=== PATIENT | female | born 1990 | race Caucasian/White ===

== ENCOUNTER → 2018-02-17 | Outpatient (CLI) | payer OTHER | LOC: COL.RAD 07:18 | DX: R10.11 Right upper quadrant pain (principal) ==

== ENCOUNTER 2018-06-07 21:32 | Emergency (ER) | payer OTHER ==
[~2018-06-07] VITALS: Ht 177.8 cm; Wt 65.9 kg
[2018-06-07 21:36] VITALS: BP 124/75; TEMP 98.6
[2018-06-07] MEDS ORDERED: ZYRTEC5 MG PO (22:27)
[2018-06-07] MEDS ORDERED: BIRTH CONTROL (22:28)
[2018-06-07] MEDS ORDERED: MULTI VITAMINS1 TAB PO (22:28)
[2018-06-07 23:07] VITALS: PULSE 85
== END 2018-06-07 23:09 | disposition home or self-care (01) ==
LOC: COL.ER 21:32
DX: S93.602A Unspecified sprain of left foot, initial encounter (principal); Z88.0 Allergy status to penicillin; W10.9XXA Fall (on) (from) unspecified stairs and steps, initial encounter; X50.1XXA Overexertion from prolonged static or awkward postures, initial encounter